=== PATIENT | female | born 1970 | race Caucasian/White ===

== ENCOUNTER 2016-12-12 23:24 | Emergency (ER) | payer OTHER ==
[~2016-12-12] VITALS: Ht 162.6 cm; Wt 72.3 kg
[2016-12-12 23:30] VITALS: BP 175/82; PULSE 76; RESP 18; TEMP 98.5; O2SAT 97
[2016-12-12] MEDS ORDERED: SODIUM CHLOR 0.9% 1000 ML INJ 1,000 ML IV SCH (23:42)
[2016-12-12] MEDS ORDERED: ONDANSETRON HCL 4 MG/2 ML VIAL IVP ONE (23:45)
[2016-12-12] MEDS ORDERED: SODIUM CHLORIDE 0.9% FLUSH 10 ML FLUSH IV FLUSH PRN (23:45)
[2016-12-12] MEDS ORDERED: MORPHINE SULFATE 4 MG/ML INJ IV PUSH ONE (23:45)
--- NOTE | 2016-12-12 23:46 | PD ---
HPI Chief Complaint: Back/ Neck Pain or Injury Time Seen by Provider: 23:42 Travel History International Travel<30 days: No Contact w/Intl Traveler<30days: No Traveled to known affect area: No History of Present Illness HPI 46-year-old female with history of no significant past medical issues, presents to the ER today with right flank and right sided abdominal pains which she currently measures at a 7 out of 10. She states it hurts with movements and prolonged sitting or standing. She denies any injuries, fevers, urinary symptoms, vaginal discharge, vomiting, or other symptoms. Patient denies any IV drug use or sick contacts. Modifying Factors: None Associated Signs & Symptoms: Right flank and abdominal pain Risk Factors: None PFSH Social History Alcohol Use: Yes Tobacco Use: Yes Allergies-Medications (Allergen,Severity, Reaction): Coded Allergies: No Known Allergies (Unverified , 12/29/13) Reported Meds & Prescriptions Reported Meds & Active Scripts Active No Active Prescriptions or Reported Medications Review of Systems Except as stated in HPI: all other systems reviewed are Neg Physical Exam Narrative GENERAL: Well-developed middle age white female patient in moderate distress. Awake and oriented 3. SKIN: Focused skin assessment warm/dry. HEAD: Atraumatic. Normocephalic. EYES: Pupils equal and round. No scleral icterus. No injection or drainage. ENT: No nasal bleeding or discharge. Mucous membranes pink and moist. NECK: Trachea midline. No JVD. CARDIOVASCULAR: Regular rate and rhythm. No murmur appreciated. RESPIRATORY: No accessory muscle use. Clear to auscultation. Breath sounds equal bilaterally. GASTROINTESTINAL: Abdomen soft, right upper quadrant tenderness without guarding or rebound, nondistended. Hepatic and splenic margins not palpable. GENITOURINARY: Normal external genitalia without lesions or erythema. Vaginal vault without blood or drainage. Cervical os was closed without drainage. No cervical motion tenderness. Uterus nontender and nonenlarged. Bilateral adnexa nontender without masses. No foreign bodies identified. BACK: Mild right CVA tenderness. No rash. No point tenderness on palpation of the spine. MUSCULOSKELETAL: No obvious deformities. No clubbing. No cyanosis. No edema. NEUROLOGICAL: Awake and alert. No obvious cranial nerve deficits. Motor grossly within normal limits. Normal speech. PSYCHIATRIC: Appropriate mood and affect; insight and judgment normal. Data Data Last Documented VS Vital Signs Date Time Temp Pulse Resp B/P Pulse Ox O2 Delivery O2 Flow Rate FiO2 12/13/16 00:54 20 12/13/16 00:45 69 145/84 98 12/12/16 23:30 98.5 Orders Complete Blood Count With Diff (12/12/16 23:42) Comprehensive Metabolic Panel (12/12/16 23:42) Lipase (12/12/16 23:42) Urinalysis - C+S If Indicated (12/12/16 23:42) Iv Access Insert/Monitor (12/12/16 23:42) Ecg Monitoring (12/12/16 23:42) Oximetry (12/12/16 23:42) Morphine Inj (Morphine Inj) (12/12/16 23:45) Ondansetron Inj (Zofran Inj) (12/12/16 23:45) Sodium Chlor 0.9% 1000 Ml Inj (Ns 1000 M (12/12/16 23:42) Sodium Chloride 0.9% Flush (Ns Flush) (12/12/16 23:45) Ed Urine Pregnancytest Poc (12/12/16 23:42) Gc And Chlamydia Pcr (12/13/16 00:02) Wet Prep Profile (12/13/16 00:02) Ct Abd/Pel W Iv Contrast(Rout) (12/13/16 00:01) Iohexol 350 Inj (Omnipaque 350 Inj) (12/13/16 01:09) Labs Laboratory Tests Test 12/13/16 12/13/16 00:05 00:10 Clue Cells (Wet Prep) PRESENT Vaginal Trichomonas (Wet Prep) NONE SEEN Vaginal Yeast (Wet Prep) NONE SEEN White Blood Count 11.4 TH/MM3 Red Blood Count 4.22 MIL/MM3 Hemoglobin 13.1 GM/DL Hematocrit 38.1 % Mean Corpuscular Volume 90.3 FL Mean Corpuscular Hemoglobin 31.0 PG Mean Corpuscular Hemoglobin 34.3 % Concent Red Cell Distribution Width 12.4 % Platelet Count 241 TH/MM3 Mean Platelet Volume 8.5 FL Neutrophils (%) (Auto) 62.0 % Lymphocytes (%) (Auto) 28.4 % Monocytes (%) (Auto) 8.0 % Eosinophils (%) (Auto) 1.2 % Basophils (%) (Auto) 0.4 % Neutrophils # (Auto) 7.2 TH/MM3 Lymphocytes # (Auto) 3.2 TH/MM3 Monocytes # (Auto) 0.9 TH/MM3 Eosinophils # (Auto) 0.1 TH/MM3 Basophils # (Auto) 0.0 TH/MM3 CBC Comment DIFF FINAL Differential Comment Urine Color YELLOW Urine Turbidity CLEAR Urine pH 6.0 Urine Specific [place] 1.028 Urine Protein NEG mg/dL Urine Glucose (UA) NEG mg/dL Urine Ketones NEG mg/dL Urine Occult Blood TRACE Urine Nitrite NEG Urine Bilirubin NEG Urine Leukocyte Esterase NEG Urine RBC 0-3 /hpf Urine WBC 3-5 /hpf Urine Squamous Epithelial 0-5 /hpf Cells Urine Bacteria FEW /hpf Urine Mucus MOD /lpf Microscopic Urinalysis Comment CULT NOT INDICATED Sodium Level 140 MEQ/L Potassium Level 3.6 MEQ/L Chloride Level 103 MEQ/L Carbon Dioxide Level 27.3 MEQ/L Anion Gap 10 MEQ/L Blood Urea Nitrogen 16 MG/DL Creatinine 0.78 MG/DL Estimat Glomerular Filtration 80 ML/MIN Rate Random Glucose 96 MG/DL Calcium Level 8.4 MG/DL Total Bilirubin 0.4 MG/DL Aspartate Amino Transf 29 U/L (AST/SGOT) Alanine Aminotransferase 31 U/L (ALT/SGPT) Alkaline Phosphatase 60 U/L Total Protein 7.4 GM/DL Albumin 3.8 GM/DL Lipase 873 U/L [facility] Medical Decision Making Medical Screen Exam Complete: Yes Emergency Medical Condition: Yes Medical Record Reviewed: Yes Interpretation(s) Laboratory Tests Test 12/13/16 12/13/16 00:05 00:10 Clue Cells (Wet Prep) PRESENT (NONE) White Blood Count 11.4 TH/MM3 (4.0-11.0) Urine Occult Blood TRACE (NEG) Urine Bacteria FEW /hpf (NONE) Urine Mucus MOD /lpf (OCC) Estimat Glomerular Filtration 80 ML/MIN (>89) Rate Calcium Level 8.4 MG/DL (8.5-10.1) Lipase 873 U/L (73-393) Last 24 hours Impressions Abdomen/Pelvis CT 12/13/16 0001 Signed Impressions: Service Date/Time: Tuesday, December 13, 2016 00:57 - CONCLUSION: 1. The kidneys are unremarkable in appearance with no renal calculi or obstruction. 2. Multiple hepatic cysts. 3. Normal appendix. Alex Titus MD Differential Diagnosis Right flank and right upper quadrant abdominal painscholecystitis versus musculoskeletal versus renal colic Narrative Course Lab work indicative of underlying pancreatitis. 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 I suspect that this may be causing some of her symptoms although the right sided flank pain is unusual for pancreatitis. CAT scan did not reveal any other signs of acute processes. Liver enzymes are normal and does not reveal an obstructive pattern. CAT scan did not show any signs of gallbladder changes. Otherwise, it appears that she has an incidental finding of Bactroban vaginosis. I talked her regarding pancreatitis findings and have offered to admit her as an observation for further treatment. She is declining at this time stating that she is a single mother and needs to go to work. My plan would be to release patient at this point with treatment for Bactroban vaginosis and we'll have her go on a clear liquid diet for the next week, with symptomatic relief or pain and nausea. Return for any worsening in symptoms as needed. The plan has been discussed with the patient and she states understanding. Diagnosis Primary Impression: Pancreatitis Additional Impression: Bacterial vaginosis Med/Other Pt SpecificInfo: Prescription(s) given Scripts Hydrocodone-Acetaminophen (Lortab)5-325 Mg Tab1 Tab PO Q6H PRN (PAIN) #20 TAB Ref 0 Prov:Yue Dias MD 12/13/16 Ondansetron Odt (Zofran Odt)4 Mg Tab4 Mg SL Q6HR PRN (Nausea/Vomiting) #7 TAB Ref 0 Prov:Yue Dias MD 12/13/16 Metronidazole (Flagyl)500 Mg [id number] Mg PO BID 7 Days Ref 0 Prov:Yue Dias MD 12/13/16 Disposition: 01 DISCHARGE HOME Condition: Stable Yue Dias MD Dec 12, 2016 23:46
[2016-12-13 00:16] LABS: AUTOMATED NEUTROPHIL # 7.2 TH/MM3 (1.8-7.7); BASOPHIL % 0.4 % (0.0-2.0); EOSINOPHIL # 0.1 TH/MM3 (0-0.4); EOSINOPHIL % 1.2 % (0.0-4.0); HEMATOCRIT 38.1 % (35.0-46.0); HEMO FLAGS DIFF FINAL; LYMPH % 28.4 % (9.0-44.0); LYMPHOCYTE # 3.2 TH/MM3 (1.0-4.8); MEAN CELL VOLUME 90.3 FL (80.0-100.0); MEAN CORPUSCULAR HGB CONC 34.3 % (32.0-36.0); PLATELET COUNT 241 TH/MM3 (150-450); RED BLOOD COUNT 4.22 MIL/MM3 (4.00-5.30); RED CELL DISTRIBUTION WIDTH 12.4 % (11.6-17.2); WHITE BLOOD COUNT 11.4 TH/MM3 (4.0-11.0)
[2016-12-13 00:18] LABS: BLOOD, URINE TRACE (NEG); GLUCOSE,URINE NEG (NEG); KETONE, URINE NEG (NEG); NITRITE,URINE NEG (NEG)
[2016-12-13 00:27] LABS: URINE COLOR YELLOW (YELLW/STRAW)
[2016-12-13 00:28] LABS: MUCUS URINE MOD /lpf (OCC); SQUAMOUS EPITHELIAL CELL URINE 0-5 /hpf (0-5)
[2016-12-13 00:29] LABS: BACTERIA, URINE FEW /hpf; RBC, URINE 0-3 /hpf (0-3)
[2016-12-13 00:30] LABS: COMMENT (UR) CULT NOT INDICATED; CULTURE IF INDICATED CULT NOT INDICATED
[2016-12-13 00:45] VITALS: BP 145/84; PULSE 69; RESP 20; O2SAT 98
[2016-12-13 00:51] LABS: CHLORIDE 103 MEQ/L (98-107); POTASSIUM 3.6 MEQ/L (3.5-5.1); SODIUM (NA) 140 MEQ/L (136-145)
[2016-12-13 00:55] LABS: ANION GAP 10 MEQ/L (5-15); BICARBONATE 27.3 MEQ/L (21.0-32.0); BLOOD UREA NITROGEN 16 MG/DL (7-18)
[2016-12-13 00:58] LABS: ALT (GPT) 31 U/L (10-53); AST (GOT) 29 U/L (15-37); GLOMERULAR FILTRATION RATE 80 ML/MIN (>89)
[2016-12-13 01:00] LABS: TOTAL BILIRUBIN ADULT 0.4 MG/DL (0.2-1.0)
[2016-12-13 01:01] LABS: ALKALINE PHOSPHATASE 60 U/L (45-117)
[2016-12-13] MEDS ORDERED: IOHEXOL 350 MG/ML 10 ML VIAL (for RAD DIAG) IV ONE (01:09)
--- NOTE | 2016-12-13 01:25 | RADRPT ---
EXAM DATE/TIME: 12/13/2016 00:57 [facility] COMPARISON: No previous studies available for comparison. INDICATIONS : Right flank pain. IV CONTRAST: 100 cc Omnipaque 350 (iohexol) IV ORAL CONTRAST: No oral contrast ingested. RADIATION DOSE: 10.06 CTDIvol (mGy) MEDICAL HISTORY : None SURGICAL HISTORY : None. ENCOUNTER: Initial ACUITY: 2 days PAIN SCALE: 8/10 LOCATION: Right flank TECHNIQUE: Volumetric scanning of the abdomen and pelvis was performed. Using automated exposure control and ad justment of the mA and/or kV according to patient size, radiation dose was kept as low as reasonably achievable to obtain optimal diagnostic quality images. DICOM format image data is available electro nically for review and comparison. FINDINGS: LOWER LUNGS: The visualized lower lungs are clear. LIVER: Homogeneous density with multiple hepatic cysts. The gallbladder is unremarkable in appearance. There is no dilation of the biliary tree. No calcified gallstones. SPLEEN: Normal size without lesion. PANCREAS: Within normal limits. KIDNEYS: Normal in size and shape. There is no mass, stone or hydronephrosis. ADRENAL GLANDS: Within normal limits. VASCULAR: There is no aortic aneurysm. BOWEL/MESENTERY: The stomach, small bowel, and colon demonstrate no acute abnormality. There is no free intraperitone al air or fluid. ABDOMINAL WALL: Within normal limits. RETROPERITONEUM: There is no lymphadenopathy. BLADDER: No wall thickening or mass. REPRODUCTIVE: Within normal limits. INGUINAL: There is no lymphadenopathy or hernia. MUSCULOSKELETAL: Within normal limits for patient age. CONCLUSION: 1. The kidneys are unremarkable in appearance with no renal calculi or obstruction. 2. Multiple hepatic cysts. 3. Normal appendix. Alex Titus MD on December 13, 2016 at 1:21 Board Certified Radiologist. This report was verified electronically.
[2016-12-13] MEDS ORDERED: HYDR-3533 PO (01:56)
[2016-12-13] MEDS ORDERED: ZOFR4TAB3 SL (01:56)
[2016-12-13] MEDS ORDERED: METR-1 PO (01:56)
[2016-12-13 02:10] VITALS: BP 145/76
[2016-12-13 08:23] LABS: CHLAMYDIA PCR NOT DETECTED (NOT DETECT); NEISSERIA PCR NOT DETECTED (NOT DETECT)
== END 2016-12-13 02:12 | disposition home or self-care (01) ==
LOC: PHED 23:24
DX: K85.90 Acute pancreatitis without necrosis or infection, unspecified (principal); N76.0 Acute vaginitis
CPT/HCPCS: 74177; 80053; 81001; 83690; 84703; 85025; 87210; 87491; 87591; 96361; 96374; 96375; 99285; J2270; J2405; J7030; Q9967

== ENCOUNTER 2017-12-29 09:38 | Observation (INO) ==
[2017-12-29] MEDS ORDERED: Aspirin 325 MG Tablet PO ONE (10:16)
[2017-12-29 10:27] LABS: Baso % (Auto) 0.3 % (0.0-2.0); Eos # (Auto) 0.1 th/mm3 (0.0-0.4); Eos % (Auto) 1.5 % (0.0-4.0); Hematocrit 37.3 % (35.0-46.0); Hemoglobin 12.7 gm/dL (11.6-15.3); Lymph # (Auto) 1.7 th/mm3 (1.0-4.8); Lymph % (Auto) 29.4 % (9.0-44.0); Mean Corpuscular Hemoglobin 30.5 pg (27.0-34.0); Mean Corpuscular Volume 89.7 fL (80.0-100.0); Mean Platelet Volume 8.8 fL (7.0-11.0); Mono # (Auto) 0.5 th/mm3 (0.0-0.9); Mono % (Auto) 7.9 % (0.0-8.0); Neut # (Auto) 3.4 th/mm3 (1.8-7.7); Neut % (Auto) 60.9 % (16.0-70.0); Platelet Count 267 th/mm3 (150-450); Red Blood Count 4.16 mil/mm3 (4.00-5.30); Red Cell Distribution Width 12.4 % (11.6-17.2); White Blood Count 5.7 th/mm3 (4.0-11.0)
--- NOTE | 2017-12-29 10:34 | ED ---
HPI General Chief complaint: Chest Pain Stated complaint: Chest Pain x 2 days Source: patient Mode of arrival: ambulatory Limitations: no limitations History of Present Illness HPI narrative: 47yo F presents to the ED with c/o midsternal chest pain for 2 days. Said it is intermittent, moderate severity, sometimes radiates to left chest. Pain is pressure like. No exacerbating or alleviating factors. Mild sob. Denies any fever, cough, n/v, abdominal pain, focal weakness or numbness. Had a stress test over 10 years ago. 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 Related Data Home Medications Medication Instructions Recorded Confirmed No Known Home Medications 12/29/17 12/29/17 Allergies Allergy/AdvReac Type Severity Reaction Status Date / Time No Known Allergies Allergy Unverified 12/29/17 09:45 Review of Systems ROS: all other systems reviewed are negative [facility] Social History Social History Substance History: No History of Abuse Second Hand Smoke Exposure: No Smoking Status: Current every day smoker Tobacco Type: Cigarettes How Often Do You Have a Drink Containing Alcohol: 4 or more times a week Recent Travel in [facility] within the Last 8 Weeks: No Recent Out of Country Travel within the Last 8 Weeks: No Immunization History Tetanus Immunization: Unsure Hx Influenza Vaccine This Season: No Exam Narrative Exam Narrative: GENERAL: 47yo F in mild distress. SKIN: Focused skin assessment warm/dry. HEAD: Atraumatic. Normocephalic. EYES: Pupils equal and round. No scleral icterus. No injection or drainage. ENT: No nasal bleeding or discharge. Mucous membranes pink and moist. NECK: Trachea midline. No JVD. CARDIOVASCULAR: Regular rate and rhythm. No murmur appreciated. RESPIRATORY: No accessory muscle use. Clear to auscultation. Breath sounds equal bilaterally. GASTROINTESTINAL: Abdomen soft, non-tender, nondistended. Hepatic and splenic margins not palpable. MUSCULOSKELETAL: No obvious deformities. No clubbing. No cyanosis. No edema. NEUROLOGICAL: Awake and alert. No obvious cranial nerve deficits. Motor grossly within normal limits. Normal speech. PSYCHIATRIC: Appropriate mood and affect; insight and judgment normal.GENERAL: [ -] SKIN: Focused skin assessment warm/dry. HEAD: Atraumatic. Normocephalic. EYES: Pupils equal and round. No scleral icterus. No injection or drainage. ENT: No nasal bleeding or discharge. Mucous membranes pink and moist. NECK: Trachea midline. No JVD. CARDIOVASCULAR: Regular rate and rhythm. No murmur appreciated. RESPIRATORY: No accessory muscle use. Clear to auscultation. Breath sounds equal bilaterally. GASTROINTESTINAL: Abdomen soft, non-tender, nondistended. MUSCULOSKELETAL: No obvious deformities. No clubbing. No cyanosis. No edema. NEUROLOGICAL: Awake and alert. No obvious cranial nerve deficits. Motor grossly within normal limits. Normal speech. PSYCHIATRIC: Appropriate mood and affect; insight and judgment normal Course Initial Documented Vital Signs Temperature 97.5 F L 12/29/17 09:45 Pulse Rate 66 12/29/17 09:45 Respiratory Rate 18 12/29/17 09:45 Blood Pressure 147/75 H 12/29/17 09:45 Pulse Oximetry 100 12/29/17 09:45 Last Documented Vital Signs Temperature 97.5 F L 12/29/17 09:45 Pulse Rate 68 12/29/17 10:16 Respiratory Rate 18 12/29/17 09:59 Blood Pressure 139/84 12/29/17 09:59 Pulse Oximetry 98 12/29/17 10:16 Medical Decision Making [facility] Narrative Medical decision making narrative: 47yo F with midsternal chest pain for 2 days. It is atypical. Labs reviewed, no leukocytosis. H/H normal. Troponin negative. BMP unremarkable. CPK normal. CXR negative. Pt is a cig smoker and has low risk chest pain but has not had any cardiac work up in a long time. Will do serial EKG and cardiac enzyme in chest pain center to r/o ACS. Return precautions given. Medical Screen Exam Complete: Yes Emergency Medical Condition: Yes Differential Diagnosis Differential Diagnosis: GERD vs. anxiety vs. ACS Lab Data Result diagrams: 12/29/17 10:20 12/29/17 10:20 Lab Results 12/29/17 12/29/17 12/29/17 Range/Units 10:20 10:20 10:20 CBC w Diff Auto diff final WBC 5.7 (4.0-11.0) th/mm3 RBC 4.16 (4.00-5.30) mil/mm3 Hgb 12.7 (11.6-15.3) gm/dL Hct 37.3 (35.0-46.0) % MCV 89.7 (80.0-100.0) fL MCH 30.5 (27.0-34.0) pg MCHC 34.0 (32.0-36.0) % RDW 12.4 (11.6-17.2) % Plt Count 267 (150-450) th/mm3 MPV 8.8 (7.0-11.0) fL Neut % (Auto) 60.9 (16.0-70.0) % Lymph % (Auto) 29.4 (9.0-44.0) % [place] % (Auto) 7.9 (0.0-8.0) % Eos % (Auto) 1.5 (0.0-4.0) % Baso % (Auto) 0.3 (0.0-2.0) % Neut # (Auto) 3.4 (1.8-7.7) th/mm3 Lymph # (Auto) 1.7 (1.0-4.8) th/mm3 [place] # (Auto) 0.5 (0.0-0.9) th/mm3 Eos # (Auto) 0.1 (0.0-0.4) th/mm3 Baso # (Auto) 0.0 (0.0-0.2) th/mm3 WBC Differential . Differential Comment . PT 9.8 (9.8-11.6) sec INR 1.0 Ratio APTT 24.5 (24.3-30.1) sec Sodium 140 (136-145) meq/L Potassium 4.0 (3.5-5.1) meq/L Chloride 107 (98-107) meq/L Carbon Dioxide 25.3 (21.0-32.0) meq/L Anion Gap 8 (5-15) meq/L BUN 12 (7-18) mg/dL Creatinine 0.73 (0.50-1.00) mg/dL Estimated GFR 85 L (>89) mL/min Random Glucose 91 (74-106) mg/dL Calcium 8.6 (8.5-10.1) mg/dL Total Creatine Kinase 114 (26-192) U/L CK-MB (CK-2) 1.4 (0.5-3.6) ng/mL Troponin I Less than 0.02 L (0.02-0.05) ng/mL Imaging Data Radiologist's impression: Chest X-Ray 12/29/17 10:16 CONCLUSION: Negative examination. ECG Data EKG Prior to Arrival: No Attestation: I personally reviewed and interpreted this ECG as follows: Interpretation: NSR 64bpm. GA interval 175ms. Normal axis. Mild ST depression in II, III, aVF. Discharge Plan Discharge Disposition Patient Disposition: 30 Still Patient Discharge Details Diagnosis: Chest pain Physicians Team ED Provider: Angelina Rosas Primary Care Provider: Case Talley Rxs /Orders / Referrals /Forms Prescriptions: No Action No Known Home Medications RF: 0 Discharge Instructions Patient Printed Instructions: Chest Pain (ED) Discharge Interventions Interventions: Vital Signs Last Done: 12/29/17 09:59 Status ED Status: With Nurse
[2017-12-29 10:41] LABS: Chloride 107 meq/L (98-107); Sodium 140 meq/L (136-145)
[2017-12-29 10:43] LABS: Calcium 8.6 mg/dL (8.5-10.1)
[2017-12-29 10:44] LABS: Anion Gap 8 meq/L (5-15); Blood Urea Nitrogen 12 mg/dL (7-18); Carbon Dioxide 25.3 meq/L (21.0-32.0); Glucose,Random 91 mg/dL (74-106)
[2017-12-29 10:45] LABS: Activated Partial Thrombo Time 24.5 sec (24.3-30.1); Prothrombin Time 9.8 sec (9.8-11.6)
[2017-12-29 10:47] LABS: Glomerular Filtration Rate 85 mL/min (>89)
[2017-12-29 10:50] LABS: Creatine Kinase 114 U/L (26-192)
[2017-12-29 11:03] LABS: Creatine Kinase MB 1.4 ng/mL (0.5-3.6)
--- NOTE | 2017-12-29 11:04 | XR ---
EXAM DATE: 12/29/2017 10:31 AM EDT AGE/SEX: 47 years / Female INDICATIONS: Chest pain & hypertension. CLINICAL DATA: This is the patient's initial encounter. Patient reports that signs and symptoms have been present for 2 days and indicates a pain score of 5/10. MEDICAL/SURGICAL HISTORY: . Smoker. None. COMPARISON: No prior exams available for comparison. FINDINGS: A single AP view of the chest demonstrates the lungs to be symmetrically aerated without evidence of mass, infiltrate or effusion. The cardiomediastinal contours are unremarkable. Osseous structures a re intact. CONCLUSION: Negative examination. Electronically signed by: Sandip Aguayo MD 12/29/2017 11:02 AM EDT
--- NOTE | 2017-12-29 12:14 | ECG ---
Date Performed: 12/29/2017 Time Performed: 09:57:00 PTAGE: 47 years EKG: Sinus rhythm NONSPECIFIC T-WAVE ABNORMALITY BORDERLINE ECG NO PREVIOUS TRACING DOCTOR: Eduardo Jackson Interpretating Date/Time 12/29/2017 12:12:02
[2017-12-29] MEDS ORDERED: Acetaminophen 500 MG Tablet PO PRN (12:21)
[2017-12-29 13:07] LABS: Creatine Kinase 107 U/L (26-192)
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
[2017-12-29 14:07] LABS: Albumin 3.6 g/dL (3.4-5.0)
[2017-12-29 14:12] LABS: Total Protein 7.1 g/dL (6.4-8.2)
[2017-12-29 16:32] LABS: Creatine Kinase 108 U/L (26-192)
--- NOTE | 2017-12-30 10:11 | NM ---
EXAM DATE: 12/30/2017 10:03 AM EDT AGE/SEX: 47 years / Female INDICATIONS: Angina. . Upper chest pain. CLINICAL DATA: This is the patient's initial encounter. Patient reports that signs and symptoms have been present for 1 day and indicates a pain score of 4/10. MEDICAL/SURGICAL HISTORY: . Smoker. . Knee surgery. COMPARISON: No prior exams available for comparison. DOSE: 8.1 mCi Tc 99m Myoview at rest 25.6 mCi [id number] at stress REST HEART RATE: 79 BPM TARGET HEART RATE: 147 BPM MAX HEART RATE: 151 BPM REST BLOOD PRESSURE: 121/77 mmHg MAX BLOOD PRESSURE: 150/90 mmHg EJECTION FRACTION: 66 % TECHNIQUE: The patient underwent upright treadmill exercise in the chest pain center. Continuous EC G tracing was monitored during stress. Gated SPECT imaging was performed after stress, and conventio nal SPECT imaging was performed at rest. The examination was performed on a SPECT/CT scanner, both a ttenuation-corrected and non-corrected datasets were reviewed. FINDINGS: Distribution: The maximum perfused segment at stress is in the septal wall. Perfusion: The pattern of perfusion at stress is within normal limits. Gated Study: There are intact wall motion and wall thickening without hypokinetic or dyskinetic segme nts. The ejection fraction is calculated at 66%. RISK CATEGORY: Low (<1% Annual Motality Rate) CONCLUSION: 1. Negative examination. Electronically signed by: Louis Cerda MD 12/30/2017 10:09 AM EDT
--- NOTE | 2017-12-30 10:16 | P.PN ---
Subjective Interval history: 47-year-old female who is seen and examined today in follow-up for chest pain. Patient denies any recurrent pain. She is doing well. Vital signs are stable. Patient remains afebrile. Physical Exam Vital signs: Vital Signs 12/29/17 10:16 12/29/17 12:16 12/29/17 12:28 Temperature Pulse Rate 68 55 L Respiratory Rate 18 Blood Pressure 138/82 Pulse Oximetry 98 98 99 12/29/17 13:37 12/29/17 20:00 12/29/17 21:00 Temperature 96.7 F L 97.8 F Pulse Rate 50 L 68 50 L Respiratory Rate 20 20 Blood Pressure 139/76 123/68 Pulse Oximetry 98 97 12/30/17 00:00 12/30/17 04:32 12/30/17 06:31 Temperature 97.3 F L 96.1 F L 96.1 F L Pulse Rate 35 L 55 L 55 L Respiratory Rate 20 20 20 Blood Pressure 122/74 115/61 115/61 Pulse Oximetry 97 95 95 12/30/17 08:00 12/30/17 09:00 Temperature 96.8 F L Pulse Rate 79 58 L Respiratory Rate 16 Blood Pressure 126/81 Pulse Oximetry 95 Intake & Output 12/29/17 12/30/17 12/30/17 18:59 06:59 18:59 Intake Total 240 / 240 Balance 240 / 240 Weight 72.6 kg 72.9 kg Intake: Oral 240 / 240 Other: # Voids 3 Date of Last Bowel Movement 12/29/17 12/29/17 Weight On Admission 72.6 kg Narrative: GENERAL: Well-developed, well-nourished, in no acute distress. alert and orientated HEENT: Head is normocephalic without any lesions or masses noted. Facial features are symmetric. Eyes:Extraocular muscles are intact. Conjunctivae were clear. NECK: Supple without any masses. Trachea midline no deviation. No JVD, CARDIAC: Regular rhythm, regular rate. S1/S2 are heard. No murmurs gallops or rubs. LUNGS: Clear to auscultation bilaterally. No wheeze, rhonchi or rales. No use of accessory muscles on inspiration or expiration. ABDOMEN: Soft, nontender. Nondistended. Bowel sounds heard in all 4 quadrants. No organomegaly or masses. Negative rebound, negative guarding EXTREMITIES: No edema, pulses are equal bilaterally. No cyanosis or clubbing NEUROLOGY: Mood and affect appear appropriate. Cranial nerves II through XII grossly intact. Results - Labs CBC & Chem 7: 12/29/17 10:20 12/29/17 10:20 Laboratory Results - last 24 hr 12/29/17 12/29/17 12/29/17 10:20 10:20 10:20 CBC w Diff Auto diff final WBC 5.7 RBC 4.16 Hgb 12.7 Hct 37.3 MCV 89.7 MCH 30.5 MCHC 34.0 RDW 12.4 Plt Count 267 MPV 8.8 Neut % (Auto) 60.9 Lymph % (Auto) 29.4 Garrett % (Auto) 7.9 Eos % (Auto) 1.5 Baso % (Auto) 0.3 Neut # (Auto) 3.4 Lymph # (Auto) 1.7 Garrett # (Auto) 0.5 Eos # (Auto) 0.1 Baso # (Auto) 0.0 WBC Differential . Differential Comment . PT 9.8 INR 1.0 APTT 24.5 Sodium 140 Potassium 4.0 Chloride 107 Carbon Dioxide 25.3 Anion Gap 8 BUN 12 Creatinine 0.73 Estimated GFR 85 L Random Glucose 91 Calcium 8.6 Total Bilirubin Direct Bilirubin Indirect Bilirubin AST ALT Alkaline Phosphatase Total Creatine Kinase 114 CK-MB (CK-2) 1.4 Troponin I Less than 0.02 L Total Protein Albumin Lipase Beta HCG, Qual 12/29/17 12/29/17 12/29/17 12:35 12:35 15:50 CBC w Diff WBC RBC Hgb Hct MCV MCH MCHC RDW Plt Count MPV Neut % (Auto) Lymph % (Auto) Garrett % (Auto) Eos % (Auto) Baso % (Auto) Neut # (Auto) Lymph # (Auto) Garrett # (Auto) Eos # (Auto) Baso # (Auto) WBC Differential Differential Comment PT INR APTT Sodium Potassium Chloride Carbon Dioxide Anion Gap BUN Creatinine Estimated GFR Random Glucose Calcium Total Bilirubin 0.7 Direct Bilirubin 0.1 Indirect Bilirubin 0.6 AST 24 ALT 35 Alkaline Phosphatase 62 Total Creatine Kinase 107 108 CK-MB (CK-2) Troponin I Less than 0.02 L Less than 0.02 L Total Protein 7.1 Albumin 3.6 Lipase 209 Beta HCG, Qual 2.62 - Imaging Impressions Chest X-Ray 08/16/18 10:16 CONCLUSION: Negative examination. Myocardial Perfusion Scan Nuc [facility] 12/30/17 06:00 CONCLUSION: 1. Negative examination. Assessment and Plan - Assessment (1) Chest pain Code(s): R07.9 - Chest pain, unspecified Status: Acute - Plan Chest pain, atypical -Given the patient's presenting symptoms, GI etiology needs to be ruled out. Will need to obtain hepatic function study, lipase level. Patient with low risk factors to only include tobacco use. -Patient has been ruled out for acute coronary event with serial cardiac enzymes are negative -Serial EKGs were reviewed by myself and showed normal sinus rhythm without any changes. -Exercise stress test was performed which did indicate abnormal ST segments in the inferior lateral leads. Discussed with assistant bookkeeper who indicated that patient should undergo myocardial perfusion study -Myocardial perfusion study was performed which was completely negative examination, low risk -Continue aspirin, nitroglycerin as needed -Continue monitor telemetry Tobacco abuse -Patient counseled on cessation DVT prevention -Sequential compression devices Discharge Planning: Discharge home in stable condition Activity: Ad deepika. Diet: Regular diet Medication per medication reconciliation Follow-up with primary medical doctor in 1 week (1) Chest pain Qualifiers: Chest pain type: unspecified Qualified Code(s): R07.9 - Chest pain, unspecified
--- NOTE | 2017-12-30 11:08 | ECG ---
Date Performed: 12/29/2017 Time Performed: 12:38:31 PTAGE: 47 years EKG: SINUS BRADYCARDIA NONSPECIFIC T-WAVE ABNORMALITY BORDERLINE ECG PREVIOUS TRACING : 12/29/2017 09.57 Since the previous tracing, no significant change noted DOCTOR: Mookie Lopez Interpretating Date/Time 12/30/2017 11:06:07
--- NOTE | 2017-12-30 11:17 | TR ---
Date Performed: 12/29/2017 Time Performed: 16:15:41 DOCTOR: Lawson Arriaza DRUG LIST: CLINICAL HISTORY: CHEST PAIN REASON FOR TEST: REASON FOR ENDING: Completed Protocol OBSERVATION: Chest Pain: None CONCLUSION: Patient tolerated JOHN protocol with Total Exercise Time=6:48 Maximum FP=163 % Max HR Achieved=87.0% Maximum DU=251/86, Patikelly twas asymptomatic during entire procedure, Testing stoppe d secondary to goals acheived. Imediately upon starting test, It appeared as if had diffuse T wave in version vs T wave depressions, ST segment progressively got worse throughout testing with depression reading in Inferior and lateral leads. Patien twas asymptomatic during this. Recovery period. ST segm ents appear to improve but does have flat segment then T wave appearance. HR and BP appropriate respo nse to exercise and return to baseline during recovery period COMMENTS: ST-T changes suggest ischemia further evaluation with nuclear stress testing could be considered
--- NOTE | 2017-12-30 12:52 | ECG ---
Date Performed: 12/29/2017 Time Performed: 15:59:08 PTAGE: 47 years EKG: SINUS BRADYCARDIA NONSPECIFIC ST-T ABNORMALITY BORDERLINE ECG Since PREVIOUS TRACING , no significant change noted PREVIOUS TRACIN12/29/2017 12.38 DOCTOR: Mookie Lopez Interpretating Date/Time 12/30/2017 12:51:42
--- NOTE | 2018-01-02 07:21 | TR ---
Date Performed: 12/30/2017 Time Performed: 09:15:11 DOCTOR: Laswon Arriaza DRUG LIST: CLINICAL HISTORY: CHEST PAIN REASON FOR TEST: REASON FOR ENDING: Completed Protocol Patient reached target heart rate OBSERVATION: Chest Pain: None Arrhythmia: None CONCLUSION: Patient tolerated JOHN protocol with Total Exercise Time=7:37 Maximum YK=115 % Max HR Achieved=87.0% Maximum QW=395/90, Patient performed 30 secs of hyperventilation prior to study. Te sting stopped after patient reached goal and Lexiscan administered. During peak exercise, patient had flat ST depressions in inferior lateral leads, Recovery period HR and BP returned to baseline COMMENTS: ST-T changes suggestive of ischemia. Further evaluation with a nuclear study is recom mended
== END 2017-12-30 10:46 | disposition home or self-care (01) ==
LOC: PH3 09:38 → PHED 09:38 → PHEDA 09:38 → PH3 13:36
PROVIDERS: ADMIT Family Medicine; ATTEND Family Medicine
DX: I10 Essential (primary) hypertension; F17.210 Nicotine dependence, cigarettes, uncomplicated; R07.9 Chest pain, unspecified; R94.31 Abnormal electrocardiogram [ECG] [EKG]